=== PATIENT | female | born 1955 | race Caucasian/White ===

== ENCOUNTER 2022-03-27 17:57 | Emergency (ER) | payer BC, SELFPAY ==
--- NOTE | ~2022-03-27 | XR_ITS ---
EXAMINATION: XR chest 1V portable Exam Date/Time: 03/27/2022 18:00 CDT HISTORY: CHEST PAIN X 45 MINS. Comparison: None available. RESULT: Lines, tubes, and devices: None. Lungs and pleura: Linear left basilar atelectasis, otherwise clear. Cardiomediastinal silhouette: Unremarkable. Other: No acute osseous or upper abdominal finding. IMPRESSION: No acute cardiopulmonary process. Reviewed, dictated and finalized at location K.
[2022-03-27 18:00] VITALS: PULSE 64
--- NOTE | 2022-03-27 18:02 | ECG_ITS ---
Measurements Intervals [place] Rate: 64 P: 24 ID: [id number] QRS: 15 QRSD: 83 T: 27 QT: 404 QTc: 418 Interpretive Statements SINUS RHYTHM LOW QRS VOLTAGE IN PRECORDIAL LEADS BORDERLINE ECG NO PREVIOUS ECG AVAILABLE FOR COMPARISON Electronically Signed On 03-28-2022 14:34:29 CDT by Franklyn Navarro M.D.
--- NOTE | 2022-03-27 18:04 | ED.CHESTPAIN ---
HPI - Chest Pain General Chief Complaint: Chest Pain Stated Complaint: chest pains Time Seen by Provider: 03/27/22 18:02 Source: patient Mode of arrival: ambulatory Limitations: no limitations History of Present Illness HPI narrative: Patient is a 67-year-old white female with no significant past medical history, was driving in her car said sudden left-sided chest pain radiating to her left jaw and just around to her back sharp 8/10 in severity associated with nausea and diaphoresis. Now in the emergency room it is 4/8 and rapidly improving. 0 by the end of the exam and history. Patient has no history of heart disease or lung disease or venous thrombosis her only past medical history is osteopenia that she got diagnosed yesterday. Related Data Home Medications Medication Instructions Recorded Confirmed No Home Medications 03/27/22 03/27/22 Allergies Allergy/AdvReac Type Severity Reaction Status Date / Time No Known Allergies Allergy Verified 03/27/22 18:05 Review of Systems Review of Systems: All systems reviewed & are unremarkable except as noted in HPI and below Constitutional: Constitutional: Reports no additional constitutional complaints Eyes: Eyes: Reports no additional eye complaints ENT: Reports system reviewed and no additional complaints, except as documented Cardiovascular: Cardiovascular: Reports no additional cardiovascular complaints Respiratory: Respiratory: Reports no additional respiratory complaints, Denies cough and Denies dyspnea Gastrointestinal: Gastrointestinal: Reports no additional gastrointestinal complaints Genitourinary: Genitourinary: Reports no additional female genitourinary complaints Musculoskeletal: Musculoskeletal: Reports no additional musculoskeletal complaints Integumentary/Breasts: Skin/Breast: Reports system reviewed and no additional complaints, except as docu Neurologic: Reports system reviewed and no additional complaints, except as documented Psychiatric: Psychiatric: Reports no additional psychiatric complaints Endocrine: Endocrine: Reports no additional endocrine complaints PMFSH Surgical History Surgical History H/O: hysterectomy Exam Const: Nutritional Appearance: well nourished Orientation/consciousness: patient oriented x3 Limitations: no limitations Other: patient is elderly white female she appears younger than her stated age. Eyes conjunctiva pink sclera nonicteric. Oropharynx is clear with moist mucous membranes. Neck is supple without lymphadenopathy or carotid bruits. Back. Nontender. Lungs clear to auscultation and percussion. Heart is regular rate rhythm without murmurs gallops or rubs. Abdomen is soft and nontender no hepatosplenomegaly or masses. Chest wall is nontender. Extremities no cyanosis clubbing or edema neurological motor and sensory grossly intact patient is alert and oriented x4. Course Course Emergency Course: Chest pain was gone by the end of her history and physical. She was given 4 baby aspirin and Zofran 4 mg IV. patient's EKG shows sinus rhythm at a rate of [address] T wave changes normal axis normal intervals impression normal EKG. 3 hour troponin also normal; Reevaluation(s) Reevaluation #1: No pain feels fine. Evaluation and plan were discussed all questions were asked and answered. Date: 03/27/22 Time: 22:10 Vital Signs Vital signs: Vital Signs Pulse Rate 64 03/27/22 18:00 Pulse Rate 74 03/27/22 18:07 Respiratory Rate 20 03/27/22 18:07 Blood Pressure 134/78 03/27/22 18:07 Pulse Oximetry 98 03/27/22 18:07 Oxygen Delivery Room Air 03/27/22 18:55 MDM - Chest Pain Lab Data Result diagrams: 03/27/22 18:37 03/27/22 18:37 Labs: Lab Results 03/27/22 03/27/22 03/27/22 Range/Units 18:37 18:37 18:37 WBC 5.1 (4.8-10.8) K/mm3 RBC 3.50 L (4.20-5.40)
[2022-03-27] MEDS: ONDANSETRON INJ 4 MG/2 ML VIAL IV PUSH (18:06)
[2022-03-27 18:07] VITALS: BP 134/78; PULSE 74; RESP 20; O2SAT 98
[2022-03-27] MEDS: ASPIRIN 81 MG CHEWABLE TABLET 324 MG PO (18:07)
[2022-03-27 19:01] LABS: Basophils Absolute Auto 0.02 K/mm3 (0.00-0.10); Basophils Percent Auto 0.4 % (0.0-1.0); Eosinophils Absolute Auto 0.16 K/mm3 (0.02-0.50); Eosinophils Percent Auto 3.2 % (1.0-6.0); Hemoglobin 10.8 g/dL (11.7-13.8); Immature Granulocyte Absolute 0.01 K/mm3 (0.00-0.00); Immature Granulocyte Percent A 0.2 % (0.0-0.0); Lymphocytes Absolute Auto 1.64 K/mm3 (1.10-4.50); Lymphocytes Percent Auto 32.5 % (18.0-42.0); Mean Corpuscular HGB Conc 32.7 g/dL (32.0-36.0); Mean Corpuscular Hemoglobin 30.9 pg (27.0-31.0); Mean Corpuscular Volume 94.3 fL (78.0-102.0); Mean Platelet Volume 11.7 fl (9.2-11.8); Monocytes Absolute Auto 0.39 K/mm3 (0.10-0.90); Monocytes Percent Auto 7.7 % (2.0-11.0); Neutrophils Absolute Auto 2.8 K/mm3 (1.7-7.2); Platelet Count Result 237 K/mm3 (150-420); Red Cell Distribution Width 13.2 % (11.6-14.4); White Blood Count 5.1 K/mm3 (4.8-10.8)
[2022-03-27] MEDS: ACETAMINOPHEN 325 MG TABLET 650 MG PO (19:07)
[2022-03-27 19:14] LABS: Partial Thromboplastin Time 28.8 SEC (23.90-30.70); Prothrombin Time 11.4 Seconds (9.50-12.10)
[2022-03-27 19:24] LABS: Alanine Aminotransferase 26 U/L (14-59); Albumin Level 3.5 g/dL (3.4-5.0); Alkaline Phosphatase 68 U/L (46-116); Anion Gap 3 mmol/L (8-16); Aspartate Amino Transferase 26 U/L (15-37); Bilirubin,Total 0.3 mg/dL (0.00-1.00); Blood Urea Nitrogen 18 mg/dL (7-18); Calcium 8.3 mg/dL (8.5-10.1); Carbon Dioxide 29 mmol/L (21-32); Chloride 109 mmol/L (98-108); Estimated CRCL calculation 74 ml/min; Estimated Glomerular Filt Rate > 60; Glucose 110 mg/dL (70-99); Lipase 127 U/L (73-393); NT Pro B Type Natriuretic Pept 159 pg/mL (0-125); Osmolality Calculated 294 mOsm/kg (285-295); Potassium 3.8 mmol/L (3.5-5.1); Sodium 141 mmol/L (136-145); Total Protein 6.2 g/dL (6.4-8.2)
[2022-03-27 19:26] LABS: Troponin I 15.1 ng/L (0.00-60.4)
--- NOTE | 2022-03-27 19:29 | PC.NURSE ---
On 03/27/22, the student, [marcia novak ], provided care and completed [facility] documentation on this patient. I have reviewed the student's documentation and agree with the findings.
[2022-03-27 21:42] LABS: Troponin I 16.1 ng/L (0.00-60.4)
[2022-03-27 22:33] VITALS: BP 127/89; PULSE 69; RESP 17; TEMP 36.4; O2SAT 97
== END 2022-03-27 22:34 | disposition home or self-care (01) ==
PROVIDERS: Emergency Provider Emergency Medicine
DX: R07.89 Other chest pain (principal)
CPT/HCPCS: 36415; 71045; 80053; 83690; 83880; 84484; 85025; 85380; 85610; 85730; 93005; 96374; 99284; A9270; J2405

== ENCOUNTER 2025-01-03 01:26 | Day surgery (SDC) | payer OTHER, SELFPAY ==
--- NOTE | 2024-12-26 14:22 | PC.NURSE ---
Report to the Outpatient Waiting Room, entrance under the green pavilion located off [facility], at time _6 am on date _01/03/25 . Planned Procedure Time: _7:30 am .? Time changes happen often and if your time is changed the preop area will call you the afternoon before. - You and your visitor will be asked to self-screen and do not enter if you have any COVID symptoms. Please call surgeon if you need to reschedule. - A mask is optional within the hospital at this time. Patients may have clear liquids (water, carbonated beverages, clear teas, apple juice) until 3 hours prior to surgery ( 4:30 am) with a maximum of 20 ounces. - No food from midnight until time of surgery and no smoking, or chewing tobacco (or any form of nicotine). No chewing gum, candy or mints. - Take only the following medications with a SIP of water on the morning of surgery: ____NONE DO NOT STOP ANY OF YOUR OTHER PRESCRIPTION MEDICATIONS PRIOR TO SURGERY EXCEPT THE FOLLOWING Hold all vitamins and supplements for 3 days per anesthesiologist. Medications to discontinue per physician NONE _ Please no make-up, nail sammarinese, hairspray, perfume, deodorant, or body powder the day of surgery.? No jewelry (including any body piercings) or valuables the day of surgery, leave them at home.? Please take a shower or bath the night before, or the morning of, surgery with an antibacterial soap.? Wear comfortable, loose fitting clothing.? Children are encouraged to wear pajamas. - Jewelry must be removed prior to entering the operating room.? Rings and piercings that are not removed may be cut off. - The hospital will not accept responsibility for valuables.? - Please leave all valuables, including medications, at home the day of surgery. If you are going home after surgery, a licensed trailer truck driver must drive you home.? - NO public transportation without another adult if you receive anesthesia. - We recommend that an adult stay with you for 24 hours following discharge. - We also recommend that you do not drive, make important decision, drink alcoholic beverages, or take any drugs that were not prescribed by your health care provider for at least 24 hours after your discharge time. For Pediatric surgeries, we recommend two adults accompany the child home. Follow any additional instructions given to you from your surgeon. Telephone instructions given to __PATIENT and asked if any additional questions and then verbalized understanding. Patient advised to call surgeon office or pre surgery nurse liaison [phone] if any additional questions.
[2024-12-26 14:47] VITALS: BMI 21.3
[2025-01-03] VITALS (12 sets, daily range): BP systolic 96–134; BP diastolic 55–90; PULSE 52–84; RESP 14–20; TEMP 36.6–37.1; O2SAT 91–100
--- OUTSIDE RECORDS SUMMARY | 2025-01-03 01:29 | XMS_ITS | Continuity of Care Document ---
Author Organization [facility] Address [address] [place] [address] Phone Care Team Providers Care [place] Name Role Phone Paige PT, DPT, Chelsey Unavailable Unavaila ble Procedures Procedure Date Therapeutic Activities Neuromuscular Re-Ed Doc neg elder mal no plan PRES/ABSN URINE INCON ASSESS PT Evaluation Moderate Complexity Therapeutic Activities Manual Therapy Therapeutic Exercise Advance Directives Directive Yes / No Effective Date File Name No Information Encounters Encounter Description Practice Location Reason(s) For Visit Diagnoses Date Provider Providers Copied on Encounter [facility], [id number], tel:[phone] [place] No Information Paige Barbosa. . [facility] [place] [address] [place] [address], [id number], tel:[phone] [place] No Information Paige Barbosa. . [facility] [address] [place] [address], [place], [place], [id number], tel:[phone] [place] No Information Paige Barbosa. . Family History Family Member Type Diagnosis Age At Onset No Information Payers Payer name Insurance type Covered republican ID Authoriza tihuong(s) [place] [id number] Social History Type Description Quantity Date Captured Comments Sex Female Smoking Status No Information Chief Complaint And Reason For Visit No Information Reason For Referral Reason For Referral No Information History Of Present Illness Encounter Date Complaint History Of Prese nt Illness No Information Functional Status Date Functional Assessmen t No Information Instructions Date Instruction Additional Infor mation Kegel exercises were explained to the patient. Kegel exercises were explained to the patient. Related to Unspecified urinary incontinence Kegel exercises were explained to the patient. Assessments Type Assessment Date No Information Patient Care Teams Name Effective Dates (start - stop) Status Members No Information
--- OUTSIDE RECORDS SUMMARY | 2025-01-03 01:29 | XMS_ITS | Encounter Summary ---
Author Organization [facility] Address [address] [facility] [place] [address] Phone Care Team Providers Care Machine Designer Name Role Phone Nilton Tavares MD Primary Care Provider [phone] Siria Drummond MD Primary Care Provider [phone] Encounter Details Date Type Department Care Team (Late st Contact Info) Description 05/02/2022 Telephone [facility] [place] [address] [place] [address] Layla Walker MD [address] [place] [address] Social History Tobacco Use Types Packs/Day Years Used Date Smoking Tobacco: Never Smokeless Tobacco: Never Alcohol Use Standard Drinks/Week Comments Yes 0 (1 standard drink = 0.6 oz pur e alcohol) 2 glasses of wine / week PHQ-2 Answer Date Recorded Total Score - Questions 1-9 0 10/26 Education Answer Date Recorded What is the highest level of school you have completed or the highest degree you have received? 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 [place] [address] PCP - General Geriatric Medicine 08/09/23 documented as of this encounter
--- OUTSIDE RECORDS SUMMARY | 2025-01-03 01:29 | XMS_ITS | Clinical Summary ---
Author Organization [facility] Address [address] [place] [address] Phone Care Team Providers Care Phosphatic Fertilizer Supervisor Name Role Phone Siria Drummond MD Primary Care Provider [phone] Allergies Active Allergy Reactions Criticality Noted Date Comments Erythromycin Rash 02/12/2013 Morphine And Codeine Nausea 08/09/2006 Propoxyphene Nausea 03/30/2017 Medications Restasis 0.05 % Emulsion Place 1 Drop in both eyes daily. 1 Active estradiol (ESTRACE VAGINAL) 0.1 MG/GM CreamIndication s:Cystocele, unspecified,Ure thral caruncle One fingertip full to the vagina daily for two weeks then on Mondays and 42.5 g 4 Active VITAMIN D PO Take by mouth once a week. Active CALCIUM PO Take by mouth See Admin Instructions. Takes this when I think about it; not every day Active HYDROcodone-nikia taminophen (NORCO) 5-325 MG TabletIndicatio ns:Cystocele, unspecified,Fem kirsten bladder prolapse Take 1-2 Tablets by mouth every 6 hours as needed for Severe pain. 20 Tablet 4 Active Additional Information Patient not taking.Reported on 05/21/2024 promethazine (PHENERGAN) 25 MG Tablet Take 1 Tablet by mouth every 6 hours as needed for Nausea - 1st line. 30 Tablet Active Additional Information Patient not taking.Reported on 05/21/2024 Active Problems Problem Noted Date Diagnosed Date Cystocele, unspecified 02/07/2024 Urethral caruncle 02/07/2024 Pre-op evaluation 02/07/2024 Postmenopausal syndrome 02/07/2024 Caregiver burden 08/09/2023 Cavernous malformation 08/09/2023 Osteopenia 08/09/2023 Female bladder prolapse 03/06/2023 Plantar fascial fibromatosis of both feet 2018 Anxiety 09/01/2010 Screen for colon cancer - - Dr. Gilmore - Negative scope - due 07/201609/01/2010 Actinic keratoses - Dr. Mosley 11/06/2009 Rectal Bleeding - Colonoscopy 2006, nasim Immunizations Immunization Administration Dates Next Due COVID-19, MRNA, LNP-S, BIVAL ENT , PFIZER, 30 MCG/0.3 ML (12+ Y/O) 03/30/2022 Covid-19, Mrna, Lnp-s, PF, 1 00 mcg/0.5 mL Dose (Moderna) 08/25/2020,07/28/2020 Influenza Vaccine greater than 3 yrs 03/2016,03/04/2015,04/15/2014,2010 Influenza Vaccine less than 3 yrs 04/14/2017 Influenza Vaccine, Quadrivalent, PF 10/0 10/2021,06/04/2020,04/17/2019,2017 Influenza, Quadrivalent, Adjuvanted 03/06/2023,1 07/18/2020 PUR TDAP 7+ YRS IM 06/18/2013 Pneumococcal Vaccine - 13 Valent 04/17/2019 Pneumococcal Vaccine Adult - 23 Valent 11/16/2020 Zoster Vaccine Recombinant 04/17/2019,01/23/2019 Family History Medical History Relation Name Comments Congestive Heart Failure Brother age 35, WPW/Wolfs Parkinsons White - 1988 Cancer Father Prostate Ovarian Cancer Paternal Grandmother Breast Cancer Neg Hx Relation Name Status Comments Brother Father Paternal Grandmother Social History Tobacco Use Types Packs/Day Years Used Date Smoking Tobacco: Never Smokeless Tobacco: Never Tobacco Cessation:Counseling Given: Yes Alcohol Use Standard Drinks/Week Comments Yes 0 (1 standard drink = 0.6 oz pur e alcohol) 2 glasses of wine / week [facility] Utilities Answer Date Recorded In the past 12 months has e electric, gas, oil, or water company threatened to shut off services in your home? No 02/06/2024 Social Connection and Isolation Panel Answer Date Recorded In a typical week, how many times do you talk on the phone with family, friends, or neighbors? More than three times a week 02/06/2024 How often do you get togethe r with friends or relatives? Three times a week 02/06/2024 How often do you attend chur ch or episcopalian services? 1 to 4 times per year 02/06/2024 Do you belong to any clubs o r organizations such as holiness groups, unions, fraternal or athletic groups, or school groups? Yes 02/06/2024 How often do you attend meet ings of the clubs or organizations you belong to? More than 4 times per year 02/06/2024 Are you , , di vorced, , never , or living with a partner? 02/06/2024 AUDIT-C Answer Date Recorded Q1: How often do you have a drink containing alc ohol? 2-4 times a month 02/06/2024 Q2: How many drinks containi ng alcohol do you have on a typical day when you are drinking? 1 or 2 02/06/2024 Q3: How often do you have si x or more drinks on one occasion? Never 02/06/2024 Overall Financial Resource Strain (CARDIA) Answe r Date Recorded How hard is it for you to pa y for the very basics like food, housing, medical care, and heating? Not hard at all 02/06/2024 PHQ-2 Answer Date Recorded Total Score - Questions 1-9 0 10/26 [facility] - Occupational Stress Questionnaire Answer Date Recorded Do you feel stress - tense, restless, nervous, or anxious, or unable to sleep at night because your mind is troubled all the time - these days? Not at all 02/06/2024 Exercise Vital Sign Answer Date Recorde d On average, how many days pe r week do you engage in moderate to strenuous exercise (like a brisk walk)? 4 days 02/06/2024 On average, how many minutes do you engage in exercise at this level? 60 min 02/06/2024 Hunger Vital Sign Answer Date Recorded Within the past 12 months, y ou worried that your food would run out before you got the money to buy more. Never true 02/06/20 24 Within the past 12 months, t he food you bought just didn't last and you didn't have money to get more. Never true 02/06/2024 PRAPARE - Transportation Answer Date Re corded In the past 12 months, has l ack of transportation kept you from medical appointments or from getting medications? No 01/24 In the past 12 months, has l ack of transportation kept you from meetings, work, or from getting things needed for daily living? No 02/06/2024 Housing Stability Vital Sign Answer Govind e Recorded In the last 12 months, was t here a time when you were not able to pay the mortgage or rent on time? No 08/09/2023 Number of Places Lived in the Last Year Not on f ile 08/09/2023 In the last 12 months, was t here a time when you did not have a steady place to sleep or slept in a prison (including now)? No 08/09/2023 Housing Stability Vital Sign Answer Govind e Recorded In the last 12 months, was t here a time when you were not able to pay the mortgage or rent on time? No 02/06/2024 In the past 12 months, how m any times have you moved where you were living? 0 02/06/2024 At any time in the past 12 m [facility], were you homeless or living in a prison (including now)? No 02/06/2024 Education Answer Date Recorded What is the highest level of school you have completed or the highest degree you have received? 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 Not on file Not on file Last Filed Vital Signs Vital Sign Reading Time Taken Comments Blood Pressure 108/60 05/21/2024 1:53 PM [employer] Pulse 70 05/21/2024 1:53 PM [employer] Temperature 36.7 C (98.1 F) 02/29/2024 11:49 AM CDT Respiratory Rate 16 05/21/2024 1:53 PM [employer] Oxygen Saturation 94% 02/29/2024 11:49 AM CDT Inhaled Oxygen Concentration - - Weight 67.1 kg (148 lb) 05/21/2024 1:53 PM [employer] Height 172.7 cm (5' 8) 05/21/2024 1:53 PM [employer] Body Mass Index 22.5 05/21/2024 1:53 PM [employer] Plan of Treatment Health Maintenance Due Date Last Done Comments Hepatitis C Virus (HCV) Screening 1955 Cologuard 1999 Immunochemical Fecal Occult Blood 1999 DEXA Bone Density 03/24/2024 03/24/2022, 12/25/2019 Mammogram 09/06/2024 09/07/2023, 02/25, 03/18/2021, Additional history exists SARS-COV-2 Immunization ( season) 2024 03/26/2024, 03/30/2022, 10/23/2021, Additional history exists Influenza Immunization (#1) 02/24/202506/2023, 03/06/2023, 03/30/2022, Additional history exists Colonoscopy 04/03/2027 04/03/2017, 07/27, 08/09/2006 (Previously completed) Colorectal Cancer Screening 04/03/2027 Respiratory Syncytial Virus (RSV) Immunization (Adult) (1 - 1-dose 75+ series) 2029 Td Immunization Every 10 Years (Adults With 1 Tdap) Discontinued 06/18/2013 Zoster Immunization Completed 04/17/2019, 9 Pneumococcal Immunization (50+ years) Completed 11/16/2020, 04/17/2019 Pneumococcal Immunization Combined Discontinued 11/16/2020, 04/17/2019 Hepatitis B Immunization Aged Out No longer eligible based on patient's age to complete this topic Human Papillomavirus (HPV) Immunization Aged Out No longer eligible based on patient's age to complete this topic Meningococcal Immunization (ACWY) Aged Out No longer eligible based on patient's age to complete this topic Rotavirus Immunization Aged Out No lo nger eligible based on patient's age to complete this topic Procedures Procedure Name Priority Date/Time Associated Diagnosis Comments [facility] SCREENING TOYA W IMPL DIGITAL W CAD W PEDRITO Routine 09/07/2023 2:31 PM CDT Encounter for screening mammogram for malignant neoplasm of breast [facility] BONE DENSITOMETRY AXIAL SKELETON Routine 03/24/2022 8:11 AM CDT Osteopenia of both lower legs [place] COLONOSCOPY FLX DX W/COLLJ SPEC WHEN PFRMD Routine 08/09/2006 from Last 3 Months or Most Recently Relevant to Health Maintenance Results * [facility] SCREENING TOYA W IMPL DIGITAL W CAD W PEDRITO (09/07/2023 2:31 PM CDT) Anatomical Region Laterality Modality breast Bilateral Mammography 09/07/2023 2:31 PM CDT Impressions 09/08/2023 8:46 AM CDT IMPRESSION: 1. There is no mammographic evidence of malignancy. 2. No change in appearance of right extracapsular rupture. RECOMMENDATIONS: 1. A 1 year screening mammogram is recommended. 2. If clinically warranted, right extracapsular rupture can be further evaluated with breast MRI. BI-RADS: 2 - Benign. Narrative 09/08/2023 8:46 AM CDT DICTATING PHYSICIAN: Johanna Barnes M.D. EXAM: [facility] SCREENING TOYA W IMPL DIGITAL W CAD W PEDRITO 09/07/2023 2:31 PM COMPARISON: 03/21/2022, 03/18/2021, 12/30/2019, 12/25/2019, 12/22/2018, 09/17/2016, 08/30/2015. HISTORY: Routine screen. No complaints. FINDINGS: Current study was also evaluated with a Computer Aided Detection (CAD) system. Additional 3-D tomographic mammography was also obtained. There are scattered areas of fibroglandular density. There are bilateral subglandular silicone implants. Right extracapsular silicone is demonstrated along the lateral inferior aspect of the right implant, compatible extracapsular rupture. No suspicious masses, calcifications, or other significant findings are seen. There has been no significant interval change. . Procedure Note Johanna Barnes MD - 09/08/2023 DICTATING PHYSICIAN: Johanna Barnes M.D. EXAM: [facility] SCREENING TOYA W IMPL DIGITAL W CAD W PEDRITO 09/07/2023 2:31PM COMPARISON: 03/21/2022, 03/18/2021, 12/30/2019, 12/25/2019, 12/22/2018,09/17/2016, 08/30/2015. HISTORY: Routine screen. No complaints. FINDINGS: Current study was also evaluated with a Computer AidedDetection (CAD) system. Additional 3-D tomographic mammography was alsoobtained. There are scattered areas of fibroglandular density. There are bilateralsubglandular silicone implants. Right extracapsular silicone isdemonstrated along the lateral inferior aspect of the right implant,compatible extracapsular rupture. No suspicious masses, calcifications, orother significant findings are seen. There has been no significantinterval change. . IMPRESSION: 1. There is no mammographic evidence of malignancy. 2. No change in appearance of right extracapsular rupture. RECOMMENDATIONS: 1. A 1 year screening mammogram is recommended. 2. If clinically warranted, right extracapsular rupture can be furtherevaluated with breast MRI. BI-RADS: 2 - Benign. Nilton Tavares MD IMG MAMMO ORDERABLES Final Result * [facility] BONE DENSITOMETRY AXIAL SKELETON (03/24/2022 8:11 AM CDT) Anatomical Region Laterality Modality BODY N/A Other 03/24/2022 8:11 AM CDT Impressions 03/24/2022 9:30 PM CDT IMPRESSION: 1. Osteopenia. FRAX indicates the 10 year risk of a hip fracture is 0.9% and the 10 year risk of a major osteoporotic fracture is 8.1%. 2. Compared to the prior exam, there has been a significant interval decrease in the BMD of the lumbar spine and left hip. RECOMMENDATIONS: A followup DEXA exam in 2-3 years is suggested. Narrative 03/24/2022 9:30 PM CDT DICTATING PHYSICIAN: Johanna Barnes M.D. EXAM: [facility] BONE DENSITOMETRY AXIAL SKELETON. DATE: 03/24/2022 8:11 AM. COMPARISON: 12/25/2019 CLINICAL HISTORY: 67-year-old female, postmenopausal, osteopenia of both lower legs. FINDINGS: Bone mineral density (BMD) was assessed with dual-energy x-ray absorptiometry (DXA). The average BMD of the lumbar spine (L1-L4) for this exam is 0.947 g/cm2. This indicates a normal BMD with a T-score of -0.9. The BMD of the lumbar spine is significantly decreased by 5.3% compared to the prior exam. The average BMD of the left hip (the femoral neck area) for this exam is 0.717 g/cm2. This indicates osteopenia with a T-score of -1.2. The BMD of the left femoral neck is significantly decreased by 7.5% compared to the prior exam. . Procedure Note Johanna Barnes MD - 03/24/2022 DICTATING PHYSICIAN: Johanna Barnes M.D. EXAM: [facility] BONE DENSITOMETRY AXIAL SKELETON. DATE: 03/24/2022 8:11 AM. COMPARISON: 12/25/2019 CLINICAL HISTORY: 67-year-old female, postmenopausal, osteopenia of bothlower legs. FINDINGS: Bone mineral density (BMD) was assessed with dual-energy x-rayabsorptiometry (DXA). The average BMD of the lumbar spine (L1-L4) for this exam is 0.947 g/cm2.This indicates a normal BMD with a T-score of -0.9. The BMD of the lumbarspine is significantly decreased by 5.3% compared to the prior exam. The average BMD of the left hip (the femoral neck area) for this exam is0.717 g/cm2. This indicates osteopenia with a T-score of -1.2. The BMD ofthe left femoral neck is significantly decreased by 7.5% compared to theprior exam. . IMPRESSION: 1. Osteopenia. FRAX indicates the 10 year risk of a hip fracture is 0.9% and the 10 yearrisk of a major osteoporotic fracture is 8.1%. 2. Compared to the prior exam, there has been a significant intervaldecrease in the BMD of the lumbar spine and left hip. RECOMMENDATIONS: A followup DEXA exam in 2-3 years is suggested. us Nilton Tavares MD IMG DEXA ORDERABLES Final Result * COLONOSCOPY,DIAGNOSTIC (08/09/2006) us Misael Gilmore MD [place] - SURGERY Final Res ult from Last 3 Months or Most Recently Relevant to Health Maintenance Insurance [facility] MEDICARE Care Teams Phosphatic Fertilizer Supervisor Relationship Specialty Start Date End Date Siria Drummond MD [id number] [place] [address] PCP - General Geriatric Medicine 08/09/23
--- OUTSIDE RECORDS SUMMARY | 2025-01-03 01:29 | XMS_ITS | Continuity of Care Document ---
Author Organization [facility] Address [address] [place] [address] Phone Care Team Providers Care Particle Board Supervisor Name Role Phone Krystian Dawkins MD Unavailable Unavailable Allergies, Adverse Reactions, Alerts Substance Reaction Status Criticality No Known Allergies Active No Inform ation No Known Allergies Active No Inform ation Medications Medication Instructions Dosage Effective Dates (start - stop) Status Comments XANAX (unknown strength) Not Available - Active Procedures Procedure Date EYE EXAM ESTABLISHED PATIENT, MEDICAL Ju PROPHYLAXIS OF RETINAL DETACHEMENT, PHOT OCOAGULATION EYE EXAM, NEW PATIENT MEDICAL Advance Directives Directive Yes / No Effective Date File Name No Information Encounters Encounter Description Practice Location Reason(s) For Visit Diagnoses Date Provider Providers Copied on Encounter [facility], [address] [place] [address], [id number], tel:[phone] [facility] No Information 6 Juancho Boland. [address] [place] [address], [facility], [place]. tel:[phone] [facility], [address] [place] [address], [id number], tel:[phone] [facility] decreased vision (chief complaint) Lattice degeneration of retina, bilateralRound hole, bilateral 6 Juancho Boland. [address] [place] [address], [id number], [place]. tel:[phone] [facility], [address] [place], [place], [id number], tel:[phone] [facility] glare (chief complaint) Lattice degeneration of retina, bilateralAge-re lated nuclear cataract, bilateral 6 No Information Other Provider: Lore Luz [address], [address] . tel:[phone] erring Provider: Bard Fannie Yanez [address], [place], [address] . tel:[phone] Family History Family Member Type Diagnosis Age At Onset Problem (finding) Family history of catar act Payers Payer name Insurance type Covered alliance party ID Authoriza tion(s) No Information Social History Type Description Quantity Date Captured Comments Alcohol Use Details Unknown Caffeine Use Details Unknown Tobacco Use Status No Information Smoking Status Never smoker Sex Female Chief Complaint And Reason For Visit No Information Reason For Referral Reason For Referral No Information History Of Present Illness Encounter Date Complaint History Of Prese nt Illness decreased vision The 60 Year old female presents for a retinal evaluation per JNT due to lattice degeneration OU and possible laser in the OD. The patient reports decreased vision in the right eye and left eye. It affects both near and far vision. It occurs constantly. The patient denies pain or discomfort. She is not using any gtts. glare The 60 Year old female presents for evaluation of cataracts OU. (referral by Dr. Evan Luz). Pt bothered by glare in the right eye and left eye. It started about 5 year(s) ago. The onset was gradual. It affects distance vision at night. The patient denies pain but OU are tired at end of day and are bothered by bright lights. Pt not using any eye meds. Functional Status Date Functional Assessmen t No Information Instructions Date Instruction Additional Infor mation Impression/Plan - Do es have a few holes in the retina that do need to be treated. used model eye to show pt the retina and weak areas in both eyes - lattice degeneration - within these areas there are holes and fluid can get under and lift retina off. Recommend laser around the hole in right eye today and have pt back to do the left eye or if pt wants to do both eyes today we can do this. There are no restrictions after the laser and will have aching during the procedure and blurry vision for about [address] lens on eye that will keep lids open and allows view into the eye also. Pt wants to try to do the laser for OU today. Laser retinopexy OU done today. Pt tolerated laser procedure well. 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 There is an area in the OD retina that may be pulling up. Want pt to see retina doctor for evaluation to see if any laser tx recommended. This is separate issue. Pt has minimal amount of cataract OU, normal for pt's age. Do not feel the cataracts would be causing alot of visual problems for pt. Do not feel benefits out weigh risks at this time. There are risks associated with surgery. Cataracts will continue to progress with time. Pt sees better with less correction. It is not uncommon to take less power in glasses Rx as we get older. Pt sees well with an update in glasses Rx. Updating Rx should make eyes feel less tired and strained. Cataracts can cause issues with glare, but sounds like pt is just sensitive to bright lights and even after removing the cataracts, pt may still have problems with light sensitivity. Would recommend waiting on cataract surgery until they get worse. Can get rid of pts nearsightedness at time of cataract surgery, but will need glasses for everything at near with a standard lens implant. There are lens implant options available to make pts less dependant on glasses after surgery. With a MFL implant, pts do see rings/halos around lights at night. A little concerned with using this lens for pt since her major complaint is glare. Would recommend pt see Dr. Luz for update in glasses Rx. The eyes can become dry, especially while doing computer work. Pt can start artificial tears QID OU. Follow up - Return i n 1-2 weeks with PC for T&D OU, possible laser OD Assessments Type Assessment Date No Information Patient Care Teams Name Effective Dates (start - stop) Status Members No Information
--- OUTSIDE RECORDS SUMMARY | 2025-01-03 01:29 | XMS_ITS | Encounter Summary ---
Author Organization [facility] Address [address] [place] [address] Phone Care Team Providers Care Log Buncher Name Role Phone Siria Drummond MD Primary Care Provider [phone] Encounter Details Date Type Department Care Team (Latest Contact Info) Description 02/14/2024 Transcribe Orders [facility] [address] [place] [address] Sue Abdullahi MD [address] [place] [id number] Preop testing (Primary Dx) Social History Tobacco Use Types Packs/Day Years Used Date Smoking Tobacco: Never Smokeless Tobacco: Never Alcohol Use Standard Drinks/Week Comments Yes 0 (1 standard drink = 0.6 oz pur e alcohol) 2 glasses of wine / week [facility] Utilities Answer Date Recorded In the past 12 months has [employer], gas, oil, or water company threatened to [...] often do you attend chur ch or cheondoism services? 1 to 4 times per year 02/06/2024 Do you belong to any clubs o r organizations such as orthodoxy groups, unions, fraternal or athletic groups, or [...] Total Score - Questions 1-9 0 10/26 [facility] - Occupational Stress [...] place to sleep or slept in a chcf (including now)? No 08/09/2023 Housing Stability Vital Sign Answer Govind e Recorded In the last 12 months, was t here a time when you were not able to pay the mortgage or rent on time? No 02/06/2024 In the past 12 months, how m any times have you moved where you were living? 0 02/06/2024 At any time in the past 12 m [facility], were you homeless or living in a chcf (including now)? No 02/06/2024 Education Answer Date Recorded What is the highest level of school you have completed or the highest degree you have received? 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 Not on file Not on file Not on file documented as of this encounter Plan of Treatment Not on file documented as of this encounter Results * ABO/RH (D) RECHECK (02/28/2024 5:51 AM CDT) ABO TYPING A 02/28/2024 6:58 AM CDT [facility] RH Positive 02/28/2024 6:58 AM CDT [facility] Blood Venipuncture / Unknown 02/28/2024 5:51 AM CDT 02/28/2024 5:54 AM CDT us Sue Abdullahi MD BLOOD BANK ORDERABLES Final Result Performing Organization Address City/[facility]/ZIP Co de Phone Number [facility] [address] [place] [address], [place] * TYPE & SCREEN (CROSSMATCH CONVERTIBLE) (02/28/2024 5:49 AM CDT) ABO TYPING A 02/28/2024 6:57 AM CDT [facility] RH Positive 02/28/2024 6:57 AM CDT [facility] ABSC Negative 02/28/2024 6:57 AM CDT [facility] Blood Venipuncture / Unknown 02/28/2024 5:49 AM CDT 02/28/2024 5:54 AM CDT us Sue Abdullahi MD BLOOD BANK ORDERABLES Edited Result - Final Performing Organization Address City/[facility] Co de Phone Number [facility] [address] [place] [place] [address], [place] documented in this encounter Visit Diagnoses Diagnosis Preop testing- Primary Preoperative examination, unspecified documented in this encounter Additional Health Concerns Assessment Noted Time PHQ-9 Depression Total Score: 0 11/17/19 21 12:25 PM CDT documented as of this encounter Care Teams Log Buncher Relationship Specialty Start Date End Date Sriia Drummond MD [address] [place] [address] PCP - General Geriatric Medicine 08/09/23 documented as of this encounter
--- OUTSIDE RECORDS SUMMARY | 2025-01-03 01:29 | XMS_ITS | Continuity of Care Document ---
Author Organization [facility] Address [address] [place] [address] Phone Care Team Providers Care Porter Head Name Role Phone Gaurav PT,DPT,ATC,LAT, Herman Unavailable Jovana vailable Procedures Procedure Date Therapeutic Exercise Dry Needling 3 or more muscles Therapeutic Exercise Dry Needling 3 or more muscles Progress Note Therapeutic Exercise Dry Needling 3 or more muscles Neuromuscular Re-Ed Dry Needling 3 or more muscles Manual Therapy Progress Note Dry Needling 3 or more muscles Therapeutic Exercise Dry Needling 3 or more muscles Neuromuscular Re-Ed Neuromuscular Re-Ed Therapeutic Exercise Dry Needling 3 or more muscles Manual Therapy Manual Therapy Therapeutic Exercise Neuromuscular Re-Ed Progress Note Dry Needling 3 or more muscles Therapeutic Exercise Neuromuscular Re-Ed Therapeutic Activities Therapeutic Activities Neuromuscular Re-Ed Therapeutic Exercise Manual Therapy Neuromuscular Re-Ed Dry Needling 3 or more muscles Therapeutic Exercise Dry Needling 3 or more muscles Therapeutic Exercise Neuromuscular Re-Ed Neuromuscular Re-Ed Dry Needling 3 or more muscles Therapeutic Exercise Progress Note Dry Needling 3 or more muscles Therapeutic Exercise Neuromuscular Re-Ed Manual Therapy Therapeutic Exercise Neuromuscular Re-Ed Manual Therapy Therapeutic Exercise Neuromuscular Re-Ed Dry Needling 3 or more muscles Manual Therapy Therapeutic Exercise Neuromuscular Re-Ed Therapeutic Activities Dry Needling 3 or more muscles Therapeutic Exercise Neuromuscular Re-Ed Manual Therapy Therapeutic Exercise Manual Therapy Neuromuscular Re-Ed Progress Note Dry Needling 3 or more muscles Therapeutic Activities Neuromuscular Re-Ed Therapeutic Exercise Manual Therapy Therapeutic Activities Dry Needling 3 or more muscles Manual Therapy Therapeutic Exercise Neuromuscular Re-Ed Therapeutic Exercise Neuromuscular Re-Ed Therapeutic Activities Manual Therapy Therapeutic Activities Neuromuscular Re-Ed Therapeutic Exercise Dry Needling 3 or more muscles Manual Therapy PT Evaluation High Complexity Therapeutic Activities Neuromuscular Re-Ed Dry Needling 3 or more muscles Advance Directives Directive Yes / No Effective Date File Name No Information Encounters Encounter Description Practice Location Reason(s) For Visit Diagnoses Date Provider Providers Copied on Encounter [facility], [address] [address], [place], [place], [id number], tel:[phone] [facility] Brown Herman. [address] [place], [address], . tel: [phone] Referring Provider: Gwyn Banks, [address], [place], [address]. tel:[phone] [facility], [address], [id number], tel:[phone] [facility] No Information Brown Herman. [address] [place], [address], . tel: [phone] Referring Provider: Gwyn Banks, [address], [place], [address]. tel:[phone] [facility], [address], [id number], [place] tel:[phone] [facility] No Information Brown Herman. [address] [place], [address], [place]. tel: [phone] Referring Provider: Gwyn Banks, [address], [place], [address]. tel:[phone] [facility], [address], [id number], [place] tel:[phone] [facility] No Information Brown Herman. [address] [place], [address], . tel: [phone] Referring Provider: Gwyn Banks, [address], [place], [address]. tel:[phone] [facility], [address] [facility] [address] [place] [address], [id number], [place] tel:[phone] [facility] ra No Information Brown Herman. [address] [place], [address], [place]. tel: [phone] Referring Provider: Gwyn Banks, [address], [place], [address]. tel:[phone] [facility], [address] [facility] [address] [place] [address], [id number], [place] [phone] [facility] ra No Information Brown Herman. [facility] [place], [address], . tel: [phone] Referring Provider: Gwyn Banks, [address], [place], [address]. tel:[phone] [facility], [address] [facility] [address] [place] [address], [id number], [place] tel:[phone] [facility] ra No Information Brown Herman. [facility] [place], [address], . tel: [phone] Referring Provider: Elías [address], [place], [address]. tel:[phone] [facility], [address] [facility] [address] [place] [address], [id number], [place] tel:[phone] [facility] ra No Information Brown Herman. [address] [place], [address], . tel: [phone] Referring Provider: Gwyn Banks [address], [place], [address]. tel:[phone] [facility], [address], [place], [place], [id number], [place] tel:[phone] [facility] No Information Brown Herman. [facility] [place], [address], . tel: [phone] Referring Provider: Elías [address], [place], [address]. tel:[phone] [facility], [address], [place], [place], [id number], [place] tel:[phone] [facility] No Information Brown Herman. [facility] [place], [address], . tel: [phone] Referring Provider: Elías [address], [place], [address]. tel:[phone] [facility], [address], [place], [place], [id number], [place] tel:[phone] [facility] No Information Brown Herman. [facility] [place], [address], [place]. tel: [phone] Referring Provider: Elías [address], [place], [address]. tel:[phone] [facility], [address], [place], [place], [id number], [place] tel:[phone] [facility] No Information Brown Herman. [facility] [place], [address], [place]. tel: [phone] Referring Provider: Elías [address], [place], [address]. tel:[phone] [facility], [address], [place], [place], [id number], [place] tel:[phone] [facility] No Information Brown Herman. [facility] [place], [address], . tel: [phone] Referring Provider: Tre Simeon [facility], [place], [address]. tel:[phone] [facility], [address], [place], [place], [id number], [place] tel:[phone] [facility] No Information Brown Herman. [facility] [place], [address], . tel: [phone] Referring Provider: [place], [address]. tel:[phone] [facility], [address], [id number], [place] tel:[phone] [facility] No Information Brown Herman. [facility] [place], [address], . tel: [phone] Referring Provider: [place], [address]. tel:[phone] [facility], [address], [place], [place], [id number], tel:[phone] [facility] No Information Brown Herman. [facility] [place], [address], . tel: [phone] Referring Provider: [place], [address]. tel:[phone] [facility], [address], [place], [place], [id number], tel:[phone] [facility] No Information Brown Herman. [address] [place], [address], [place]. tel: [phone] Referring Provider: Tre Simeon, [place], [address]. tel:[phone] [facility], [address], [id number], [place] tel:[phone] [facility] No Information Brown Herman. [address] [place], [address], [place]. tel: [phone] Referring Provider: Elías [address], [place], [address]. tel:[phone] [facility], [address], [id number], [place] tel:[phone] [facility] No Information Brown Herman. [address] [place], [address], [place]. tel: [phone] Referring Provider: Tre Simeon, [place], [address]. tel:[phone] [facility], [address], [id number], [place] tel:[phone] [facility] No Information Brown Herman. [address] [place], [address], [place]. tel: [phone] Referring Provider: Elías [address], [place], [address]. tel:[phone] [facility], [address], [id number], [place] tel:[phone] [facility] No Information Brown Herman. [address] [place], [address], [place]. tel: [phone] Referring Provider: Gwyn Banks [address], [place], [address]. tel:[phone] [facility], [address] [facility], [place], [place], [id number], [place] tel:[phone] [facility] No Information Brown Herman. [facility] [place], [address], . tel: [phone] Referring Provider: Gwyn Banks, [address], [place], [address]. tel:[phone] [facility], [address] [place] [address], [id number], [place] tel:[phone] [facility] No Information Brown Herman. [facility] [place], [address], . tel: [phone] Referring Provider: Elías [address] [place], [address]. tel:[phone] [facility], [address] [place] [address], [id number], [place] tel:[phone] [facility] No Information Brown Herman. [facility] [place], [address], . tel: [phone] Referring Provider: Elías [address], [place], [address]. tel:[phone] [facility], [address], [place], [id number], [place] tel:[phone] [facility] No Information Brown Herman. [address] [place], [address], . tel: [phone] Referring Provider: Elías [address], [place], [address]. tel:[phone] Family History Family Member Type Diagnosis Age At Onset No Information Payers Payer name Insurance type Covered alliance party ID Greg huffman(s) [facility] [id number] Social History Type Description Quantity Date Captured Comments Sex Female Smoking Status No Information Chief Complaint And Reason For Visit No Information Reason For Referral Reason For Referral No Information History Of Present Illness Encounter Date Complaint History Of Prese nt Illness No Information Functional Status Date Functional Assessmen t No Information Instructions Date Instruction Additional Infor jay Prescribed activity/exercise edu cation Related to Overweight Dietary needs education Related to Overweight Assessments Type Assessment Date No Information Patient Care Teams Name Effective Dates (start - stop) Status Members No Information
[2025-01-03] MEDS: LACTATED RINGERS 1,000 ML 30 ML IV CONT ×2 (06:40→08:50)
--- NOTE | 2025-01-03 07:08 | WPDANESEPPF ---
Anes - Initial Pre Proc Eval Procedure: Operation Date: 01/03/25 07:30 Proposed Procedures p Bilateral Breast Implant Removal with Capsulectomy - Raz Downing MD Date/Time: 01/03/25 07:08 Surgeon: Raz Downing MD Pre Op Diagnosis: bilateral breast Implant Rupture Patient Data Age: 69 Gender: F Height: 1.73 m Weight: 67.1 kg Last Vital Signs Temp 37.1 C 01/03/25 06:30 Pulse 58 L 01/03/25 06:30 Resp 18 01/03/25 06:30 BP 96/70 L 01/03/25 06:30 Pulse Ox 97 01/03/25 06:30 O2 Del Method Room Air 01/03/25 06:30 Allergies Allergy/AdvReac Type Severity Reaction Status Date / Time No Known Allergies Allergy Verified 01/03/25 06:32 Home Medications ?Medication ?Instructions ?Recorded ?Confirmed ?Type No Home Medications 03/27/22 01/03/25 History Patient hx anesthesia problems: none Family hx anesthesia problems: none Results Review: All pre-operative results and documents have been reviewed as part of the pre-operative evaluation. [facility] Surgical History Surgical History H/O: hysterectomy Family History Family History Father Cancer Social History Social History Smoking status: Never smoker Alcohol intake: current Drinks per week: 4 Substance use: never Current Housing: Decline to Answer Concerned About Future Housing: Decline to Answer Difficulty Paying Gas/Electric Bills: Decline to Answer Difficulty Paying for Meds: Decline to Answer Currently Unemployed: Decline to Answer Education: Decline to Answer Difficulty w/ Childcare or Family Care: Decline to Answer Living arrangements: with family Spiritual care concerns: No Anes - Eval Final PreProcedure Day of Procedure 01/03/25 07:08 Patient weight: normal Heart: regular rate and rhythm Lungs: clear to auscultation Airway: Mallampati scale class II Neurological: alert and oriented Last oral intake: >/= 8 hours ASA classification: II Emergent: no Anesthetic plan: proceed Anesthesia type and monitoring: general LMA and standard monitoring Results Review: All pre-operative results and documents have been reviewed as part of the pre-operative evaluation. Informed Consent: The patient's anesthetic plan and its attendant risks and benefits were discussed with the patient/family/POA. Questions were solicited and answers provided to the satisfaction of the patient/family/POA.
--- NOTE | 2025-01-03 07:11 | WPDHPUPDATE1 ---
History and Physical Update Update Date/Time: 01/03/25 07:11 History and Physical has been reviewed, including an updated exam of the patient. There are NO changes in the patient's condition. Risks, benefits, and alternatives have been discussed and questions answered. Patient agrees to proceed with procedure.
--- NOTE | 2025-01-03 07:11 | W.PM.PROC2 ---
Procedure Note - Detailed Date of Procedure 01/03/25 Pre-op Diagnosis bilateral breast Implant Rupture Post-op Diagnosis Same Procedure Performed Bilateral breast implant removal Surgeon Raz Downing MD Anesthesia General Findings Total capsulectomy completed (intact) Description of Procedure She is here for the above procedure. Preoperatively risks, benefits, alternatives were discussed in extensive detail. Want her to be very realistic about risks involved as well as expectations. We discussed options or drains with the procedure including all her options. Made sure answered everyone of her questions to her satisfaction again today. She voiced clear understanding. Consent was obtained. She was taken to the operating room placed supine on the operating room table. Anesthesia provided by anesthesiology. She was prepped and draped in the standard sterile fashion. Surgical time-out was. 1% lidocaine and 0.25% Marcaine with epinephrine was used to provide a field block. Ten blade used to excise along previous scar. Dissection was continued down to the capsules identified and I was able to complete a total capsulectomy (intact) which was removed and sent to pathology. I copiously irrigated with 3 L of saline solution on TUR tubing. Verified strict hemostasis. Priyanka placed bilateral. I closed with 2-0 Vicryl followed by 3-0 Stratafix in running subcuticular 4-0 Monocryl and tissue glue. Dressings and a surgical bra were placed. She tolerated the procedure well. Estimated Blood Loss 20 Drains No Packing No Pathology Yes (Bilateral breast implant capsules) Complications No immediate complications Condition Stable Disposition PACU
[2025-01-03] MEDS: SCOPOLAMINE 1 MG PATCH 1 PATCH TRANSDERM (07:12)
[2025-01-03] MEDS: TRANEXAMIC ACID 1,000MG/ISO100 1,000 MG/100 ML BAG 200 MG IVPB (07:13)
[2025-01-03] MEDS: ceFAZolin 2 GM in SODIUM CHLORIDE 0.9% IV 50 ML 100 ML IVPB (07:27)
[2025-01-03] MEDS: LIDO 1%/EPINEPHRINE 1:100,000 20 ML VIAL 30 ML INFILTRATE (07:47)
--- NOTE | 2025-01-03 08:20 | S_PTH ---
PATIENT: Angelique Alvarez LOC: [facility] U#:[id number] AGE/SX: 69/F ROOM: RE01/03/[address]: Raz Downing MD : 1955 BED: DIS: 01/03/2025 SPEC #: [id number] RECD: 01/03/25 10:23 STATUS: EDSON REQ #: [id number] LOUISE: 01/03/25 08:[address]: Raz Downing DEPT: [facility] Surgical RECD BY: Padmini Piper ENTERED: 01/03/25 10:23 SP TYPE: Surgical OTHR DR: Jessica Zavaleta, DO Tissues: A - Breast Capsule B - Breast Capsule Procedures: Hematoxylin and Eosin Stain Gross and Microscopic Level 3
[2025-01-03] MEDS: HYDROmorphone HCL INJ (*CRX) 1 MG/ML SYR 0.5 MG IV PUSH ×2 (09:19→09:30)
[2025-01-03] MEDS: oxyCODONE HCL (*CRX) 5 MG TAB IR PO (10:21)
[2025-01-03] MEDS: ONDANSETRON INJ 4 MG/2 ML VIAL IV PUSH (10:47)
== END 2025-01-03 12:03 | disposition home or self-care (01) ==
PROVIDERS: PCP Family Medicine; Visit Provider Surgery Plastic and Reconstructive Surgery
PROC: (CPT 19371; principal; 2025-01-03 07:30)
DX: T85.898A Other specified complication of other internal prosthetic devices, implants and grafts, initial encounter (principal); N60.11 Diffuse cystic mastopathy of right breast; Y83.8 Other surgical procedures as the cause of abnormal reaction of the patient, or of later complication, without mention of misadventure at the time of the procedure
CPT/HCPCS: 19371; 88304; J0690; A9270; J1100; J1171; J2003; J2004; J2250; J2405; J2704; J3010; J7120